=== PATIENT | female | born 1975 | race Caucasian/White ===

== ENCOUNTER 2016-12-24 14:51 | Observation (INO) ==
[2016-12-24] MEDS ORDERED: DILAUDID IV PRN (16:45)
[2016-12-24 16:52] LABS: MANUAL DIFF NEEDED? NO
[2016-12-24 16:56] LABS: BASO% 0.5 % (0.0-0.8); EOS# 0.25 X1000 (0.0-0.7); EOS% 2.7 % (0.0-10.0); HEMOGLOBIN 13.7 g/dL (12.0-16.0); LYMPH# 3.05 X1000 (1.2-3.4); LYMPH% 33.1 % (20.5-51.1); MCH 29.4 PG (27-31); MCHC 32.6 g/dL (33-37); MCV 90.1 FL (81-99); MONO# 0.81 X1000 (0.11-0.59); MONO% 8.8 % (1.7-9.3); MPV 9.9 FL (7.4-10.4); NEUT% 54.9 % (42.2-75.2); PLT 337 X1000 (130-400); RBC 4.66 XMIL (4.2-5.4)
[2016-12-24] MEDS: DILAUDID IV PRN ×3 (17:07→22:19)
[2016-12-24] MEDS: D5 1/2 NS 1,000 ML IV SCH (17:10)
[2016-12-24] MEDS: ZOFRAN IV PRN ×2 (17:10→22:19)
[2016-12-24 17:15] LABS: AGAP 14; ALKALINE PHOSPHATASE 99 U/L (32-104); BUN 8 mg/dL (8-22); CALCIUM 9.2 mg/dL (8.8-10.2); CHLORIDE 102 mmol/L (98-107); COSMO 277; GOT 19 U/L (10-30); GPT 18 U/L (10-36); POTASSIUM 4.1 mmol/L (3.5-5.1); SODIUM 140 mmol/L (136-145); TCO2 24 mmol/L (25-35); TOTAL BILIRUBIN 0.31 mg/dL (0.20-1.00)
[2016-12-24] MEDS: LEVAQUIN 500 MG in NS 100 ML IV SCH (17:52)
[2016-12-24] MEDS: SODIUM CHLORIDE 0.9% INJ SCH (19:57)
[2016-12-24] MEDS: PROTONIX IV SCH (19:57)
[2016-12-25] MEDS: DILAUDID IV PRN ×5 (01:42→20:50)
[2016-12-25] MEDS ORDERED: BENADRYL PO PRN (03:10)
[2016-12-25] MEDS: ZOFRAN IV PRN ×2 (03:23→07:23)
[2016-12-25] MEDS ORDERED: SODIUM CHLORIDE 0.9% 10 ML ONE (04:00)
[2016-12-25] MEDS: SODIUM CHLORIDE 0.9% INJ PRN (04:01)
[2016-12-25] MEDS: PHENERGAN IV PRN ×5 (04:01→20:51)
[2016-12-25] MEDS: D5 1/2 NS 1,000 ML IV SCH ×2 (06:35→11:57)
--- NOTE | 2016-12-25 10:27 | Diag Imaging Result Doc PS360 ---
EXAM: CT ABD/PELVIS W/PO AND IV CON HISTORY: abd pain TECHNIQUE: CT of the abdomen and pelvis with intravenous and oral contrast and dose reduction (clarity.) COMMENT: The current study is compared with that of 05/17/2015 and 10/13/2011. There is some apparent atelectasis in the lung bases. This was also present to some extent on the previous examinations and may largely be due to fibrosis. The liver, spleen, adrenal glands, and pancreas are within normal limits. There is been cholecystectomy. The kidneys are without evidence of hydronephrosis or mass. There is no evidence of significant adenopathy. There is stool in the colon particularly the descending colon. The ascending colon is largely nondistended. No evidence of abdominal aortic aneurysm is present. Pelvis: There is been partial resection of the sigmoid colon. There is a fair amount of stool in the distal colon. The cecum is located in the posterior pelvis on the right side of the rectum. No abnormal fluid collections are present. There has been previous appendectomy and hysterectomy. The urinary bladder is unremarkable in appearance. The regional skeleton is stable in appearance. IMPRESSION: Mild constipation. No evidence of acute disease. The findings were discussed with Jasvir Yo MD at 12/25/2016 10:20 AM. Electronically signed by Blair Paez 12/25/2016 10:25 AM
[2016-12-25] MEDS ORDERED: GOLYTELY PO ONE (10:35)
[2016-12-25] MEDS: LEVAQUIN 500 MG in NS 100 ML IV SCH (17:54)
[2016-12-25] MEDS: PROTONIX IV SCH (20:45)
[2016-12-26] MEDS: D5 1/2 NS 1,000 ML IV SCH ×4 (01:20→18:14)
[2016-12-26] MEDS: SODIUM CHLORIDE 0.9% INJ PRN ×3 (02:57→13:30)
[2016-12-26] MEDS: PHENERGAN IV PRN ×4 (02:57→18:14)
[2016-12-26] MEDS: DILAUDID IV PRN ×4 (02:57→17:20)
[2016-12-26 10:39] LABS: URINE MICRO REVIEW NEEDED? NO; URINE SOURCE CLEAN CATCH
[2016-12-26 10:44] LABS: BILIRUBIN URINE NEGATIVE (NEGATIVE); BLOOD URINE NEGATIVE (NEGATIVE); COLOR STRAW; GLUCOSE URINE NEGATIVE (NEGATIVE); LEUKOCYTES URINE NEGATIVE (NEGATIVE); NITRITE URINE NEGATIVE (NEGATIVE); PH URINE 6.5; PROTEIN URINE NEGATIVE (NEGATIVE); SP GRAVITY URINE 1.001; TURBIDITY URINE CLEAR (CLEAR); UR EPITHELIAL CELLS <10 /HPF (<10); URINE BACTERIA NEGATIVE /HPF; URINE RBC <10 /HPF (<10); URINE WBC <10 /HPF (<10); UROBILINOGEN URINE NORMAL (NORMAL)
[2016-12-26] MEDS ORDERED: XYLOCAINE-MPF 2% ONE (12:16)
[2016-12-26] MEDS ORDERED: DIPRIVAN 1% ONE ×2 (12:16→12:30)
[2016-12-26] MEDS ORDERED: VERSED ONE (12:16)
--- NOTE | 2016-12-26 14:11 | OPERATIVE NOTE ---
PROCEDURE DATE: 12/26/2016 PREOPERATIVE DIAGNOSES: 1. Chronic abdominal pain. 2. History of multiple operations, including gallbladder, appendix, hysterectomy, and sigmoid. PROCEDURE: 1. EGD. 2. Colonoscopy. POSTOPERATIVE DIAGNOSIS: Relatively normal. PROCEDURE DETAILS: The patient was brought to the GI lab after satisfactory IV sedation with propofol and anesthesia standby. Flexible gastroscope was introduced transorally without difficulty. Esophagus was normal down to 37 cm, at which point the stomach was entered. The stomach was basically normal, as was the pylorus. Retroflexion revealed no ulceration at the lesser curve or the GE junction, and no hiatal hernia. The scope was removed. The patient was then turned. Rectal exam revealed some small hemorrhoids. Colonoscope was introduced without difficulty. Rectum was otherwise normal. There was a widely patent anastomosis at about 16 cm from previous sigmoid resection in 2013. Proximal to this, there were only rare diverticula. Transverse, right colon and cecum all visualized and were within normal limits, with no intrinsic lesions. The scope was gradually removed. The patient tolerated the procedure well. Previous CT scan reveals the ileocecal valve and cecum to be plastered deeply down in the pelvis, and the patient has chronic abdominal pain. We will proceed with a laparoscopy, possible laparotomy and adhesiolysis tomorrow. cc: Jasvir Yo MD
[2016-12-26] MEDS: LEVAQUIN 500 MG in NS 100 ML IV SCH (17:41)
[2016-12-26] MEDS: SODIUM CHLORIDE 0.9% INJ SCH (18:14)
[2016-12-26] MEDS: PROTONIX IV SCH (20:26)
[2016-12-26] MEDS: ZOFRAN IV PRN (20:29)
[2016-12-27] MEDS: PHENERGAN IV PRN ×2 (00:59→11:50)
[2016-12-27] MEDS: DILAUDID IV PRN (01:00)
[2016-12-27] MEDS: SODIUM CHLORIDE 0.9% INJ PRN (01:00)
[2016-12-27] MEDS: D5 1/2 NS 1,000 ML IV SCH ×5 (03:48→15:26)
[2016-12-27] MEDS ORDERED: XYLOCAINE-MPF 2% ONE (08:36)
[2016-12-27] MEDS ORDERED: DIPRIVAN 1% ONE (08:36)
[2016-12-27] MEDS ORDERED: FENTANYL ONE (08:38)
[2016-12-27] MEDS ORDERED: XYLOCAINE 1%/EPI 1:100,000 ONE (08:45)
[2016-12-27] MEDS ORDERED: MARCAINE 0.25% PF ONE (08:45)
[2016-12-27] MEDS ORDERED: ZOFRAN ONE (09:19)
[2016-12-27] MEDS ORDERED: DECADRON ONE (09:19)
[2016-12-27] MEDS: PHENERGAN ONE ×3 (09:41→10:48)
[2016-12-27] MEDS ORDERED: D5 1/2 NS 1,000 ML ONE (09:48)
[2016-12-27] MEDS ORDERED: DILAUDID PCA VIAL ONE (09:49)
[2016-12-27] MEDS: DILAUDID ONE ×2 (09:50→10:00)
[2016-12-27] MEDS ORDERED: BENADRYL IV PRN (10:01)
[2016-12-27] MEDS ORDERED: DILAUDID PCA VIAL IV PRN (10:01)
[2016-12-27] MEDS ORDERED: NARCAN IV PRN (10:01)
[2016-12-27] MEDS ORDERED: LR 1,000 ML IV SCH (10:01)
[2016-12-27] MEDS ORDERED: PHENERGAN IV PRN (10:01)
[2016-12-27] MEDS ORDERED: SODIUM CHLORIDE 0.9% INJ PRN (10:01)
[2016-12-27 10:04] LABS: URINE MICRO REVIEW NEEDED? NO; URINE SOURCE CATH
[2016-12-27 10:25] LABS: BILIRUBIN URINE NEGATIVE (NEGATIVE); BLOOD URINE NEGATIVE (NEGATIVE); COLOR STRAW; GLUCOSE URINE NEGATIVE (NEGATIVE); LEUKOCYTES URINE NEGATIVE (NEGATIVE); NITRITE URINE NEGATIVE (NEGATIVE); PROTEIN URINE NEGATIVE (NEGATIVE); TURBIDITY URINE CLEAR (CLEAR); UR EPITHELIAL CELLS <10 /HPF (<10); URINE BACTERIA NEGATIVE /HPF; URINE RBC <10 /HPF (<10); URINE WBC <10 /HPF (<10); UROBILINOGEN URINE NORMAL (NORMAL)
--- NOTE | 2016-12-27 11:03 | OPERATIVE NOTE ---
PROCEDURE DATE: 12/27/2016 SURGEON: Jasvir Yo MD. PREOPERATIVE DIAGNOSIS: Chronic lower abdominal pain. POSTOPERATIVE DIAGNOSIS: Chronic lower abdominal pain. PROCEDURE: Laparoscopy with adhesiolysis. PROCEDURE IN DETAIL: The patient was brought to the operating room. After satisfactory induction of IV and endotracheal anesthesia, athrombic TEDs and a Meek catheter were placed. Her abdomen was broadly prepped and draped in the appropriate manner. The patient has had multiple previous operations including an infraumbilical midline incision, a low Pfannenstiel incision, laparoscopy for appendectomy and cholecystectomy. In the supraumbilical area, an area was marked out, infiltrated with Marcaine with epinephrine and a 10 mm trocar was placed with a Yang approach. The abdomen was insufflated to 3-1/2 L of carbon dioxide. Again, after infiltration with Marcaine and epinephrine, on the right and left side of the abdomen above the Pfannenstiel incision, two 5 mm trocars were placed. The patient was placed in steep Trendelenburg the cecum was delivered. It was fairly free there was a staple line across the base of the cecum from the previous appendectomy the small intestine was relatively free in the pelvis. On the right and the left side, there was evidence of a previous hysterectomy as well as the sigmoid resection. There was no adhesions to this sigmoid anastomosis scar and no adhesions in the pelvis from the previous hysterectomy. There was a fairly large band of omentum that was in the upper abdomen. It was taken down with the hot scissors and this freed up the belly entirely. Otherwise, there was no evidence of pathology. The abdomen was subsequently deflated. The supraumbilical incision underwent fascial closures of 0 Surgilon on trocar removal. All incisions were closed with subcuticular 4-0 Vicryl. Steri- Strips, Telfa, and OpSite were applied. Meek catheter was removed. The patient was awakened and extubated in the operating room and transferred to recovery. ESTIMATED BLOOD LOSS: Around 5 mL. cc: Jasvir Yo MD
[2016-12-27] MEDS ORDERED: TORADOL IM ONE (14:39)
[2016-12-27] MEDS ORDERED: ZOFRAN IV PRN (14:48)
[2016-12-27] MEDS: LEVAQUIN 500 MG in NS 100 ML IV SCH (16:34)
[2016-12-27] MEDS: SODIUM CHLORIDE 0.9% INJ SCH (23:31)
[2016-12-27] MEDS: PROTONIX IV SCH (23:31)
[2016-12-28] MEDS: D5 1/2 NS 1,000 ML IV SCH ×3 (04:18→04:21)
[2016-12-28 08:39] VITALS: BP 100/60
--- NOTE | 2017-01-12 16:37 | DISCHARGE SUMMARY ---
ADMISSION DATE: 12/24/2016 DISCHARGE DATE: 12/28/2016 DIAGNOSIS: Chronic lower abdominal pain. PROCEDURE: CT scan abdomen and pelvis, EGD and colonoscopy revealing only mild gastritis and a widely patent sigmoid anastomosis with some small hemorrhoids done on December 26. On December 27 she underwent laparoscopy with adhesiolysis. HOSPITAL COURSE: The patient is a 41-year-old, white female known to me for many years who presented with severe lower abdominal pain on the left side. She said her stool caliber had decreased. She was also running a low-grade temperature and had some nausea as well. She was admitted, given IV hydration and antibiotics. A CT scan of the abdomen and pelvis on December 25 revealed only constipation with no evidence of abscess or other pathology. On December 26 she underwent EGD and colonoscopy revealing the normal EGD, a widely patent sigmoid anastomosis and only some small hemorrhoids. On December 27 a laparoscopy was performed of omental adhesions to the anterior abdominal wall and a bit of adhesions in the pelvis. Hospitalization was otherwise largely uneventful. She did improve and was subsequently allowed home on December 28 on [place], Zofran, and Colace. She is to be seen in the office in 1-2 weeks' time. cc: Jasvir Yo MD
--- NOTE | 2017-01-12 17:40 | HISTORY AND PHYSICAL ---
DIAGNOSIS: Chronic lower abdominal pain. PLAN: Admission, a CT scan, planned EGD and colonoscopy, possible laparoscopy for adhesiolysis. HISTORY OF PRESENT ILLNESS: The patient is a 41-year-old white female, known to me for many years. She has had multiple operations, including laparoscopic appendectomy, laparoscopic cholecystectomy, hysterectomy, sigmoid resection in 2013. She has significant pain in her left lower quadrant, and is tearful and upset in the office. She will be admitted today with planned CT scan of the abdomen and pelvis to rule out recurrent diverticulitis or abscess. If this is negative, we will proceed with EGD and colonoscopy prior to considering laparoscopy. PHYSICAL EXAMINATION: GENERAL: Reveals a young white female in moderate discomfort. HEAD AND NECK: She is normocephalic, atraumatic. Pupils equal and reactive. EAR, NOSE, AND THROAT: Negative. BREAST AND AXILLARY: Exam negative. ABDOMEN: Scaphoid, with hypoactive bowel sounds. There is a well-healed midline scar and a Pfannenstiel scar, with no evidence of a herniation. GENITOURINARY: Negative. NEUROLOGIC: Neurologically intact. IMPRESSION: Chronic left lower quadrant pain. PLAN: Admission. CT scan, EGD, colonoscopy and possible laparoscopy. cc: Jasvir Yo MD
== END 2016-12-28 11:43 | disposition home or self-care (01) ==
LOC: 3N 14:51 → INTOOBSV 14:51
PROVIDERS: ADMIT Surgery; ATTEND Surgery